=== PATIENT | female | born 1945 | race American Indian/Alaskan Native ===

== ENCOUNTER 2016-06-14 09:33 | Emergency (ER) | payer MEDICARE ==
[2016-06-14 10:57] VITALS: BP 138/77
--- NOTE | 2016-06-14 11:43 | Emergency Department Report ---
ED Extremity Problem HPI - General Chief complaint: Extremity Injury, Lower Stated complaint: PAIN IN LEGS Time Seen by Provider: 06/14/16 11:21 Source: patient Mode of arrival: Ambulatory Limitations: No Limitations - History of Present Illness Initial comments: PT reports valente leg pain since Feb. PT states she did trip and fall in Jan. PT states she was sore after fall but pain improved after apple cider soaks. PT states that she has tried a herbal joint supplement and a back pain reliever from the [employer] store but no improvement. PT states she has noticed swelling in the front of her legs. pt denies hx of dvt or CA, no recent surgery MD Complaint: extremity pain -: Gradual, month(s) Location: lower extremity, bilateral lower extremity History of Same: No -: No fever, No associated chest pain Severity scale (0 -10): 9 Quality: sharp, constant Consistency: constant Improves with: nothing Worsens with: weight bearing, walking, palpation Associated Symptoms: denies other symptoms - Related Data Allergies Allergy/AdvReac Type Severity Reaction Status Date / Time No Known Allergies Allergy Unverified 06/14/16 10:49 ED Review of Systems ROS: Stated complaint: PAIN IN LEGS Other details as noted in HPI Comment: All other systems reviewed and negative Constitutional: denies: fever Respiratory: denies: shortness of breath Cardiovascular: denies: chest pain Gastrointestinal: denies: abdominal pain Musculoskeletal: as per HPI, back pain. denies: joint swelling Skin: denies: rash, change in color Neurological: abnormal gait. denies: weakness, numbness, paresthesias ED Past Medical Hx - Past Medical History Hx Hypertension: Yes Hx Diabetes: No Hx Deep Vein Thrombosis: No - Surgical History Additional Surgical History: TUBAL LIGATION - Family History Family history: no significant (pt states both of her parents are alive and well ) - Social History Smoking Status: Never Smoker Substance Use Type: None ED Physical Exam - General Limitations: No Limitations General appearance: alert, in no apparent distress - Head Head exam: Present: atraumatic, normocephalic, normal inspection - Eye Eye exam: Present: normal appearance, EOMI. Absent: scleral icterus, conjunctival injection - ENT ENT exam: Present: normal exam - Neck Neck exam: Present: normal inspection, full ROM. Absent: tenderness - Respiratory Respiratory exam: Present: normal lung sounds bilaterally. Absent: respiratory distress, wheezes - Cardiovascular Cardiovascular Exam: Present: regular rate, normal rhythm, normal heart sounds - GI/Abdominal GI/Abdominal exam: Present: soft. Absent: tenderness - Extremities Exam Extremities exam: Present: full ROM, tenderness - Expanded Lower Extremity Exam Left Hip exam: Absent: tenderness, shortening Upper Leg exam: Present: normal inspection Knee exam: Present: full ROM, tenderness, swelling (to L ant knee ). Absent: normal inspection, deformity, crepidus Lower Leg exam: Present: tenderness (L post calf ), swelling (trace ). Absent: laceration, ecchymosis, deformity, erythema Ankle exam: Present: normal inspection. Absent: tenderness, swelling Foot/Toe exam: Present: normal inspection, full ROM. Absent: tenderness, ecchymosis, deformity Neuro vascular tendon exam: Absent: pulse deficit Gait: Positive: antalgic Right Hip exam: Absent: tenderness Upper Leg exam: Present: normal inspection Knee exam: Present: normal inspection, full ROM. Absent: tenderness, swelling, ecchymosis, deformity, crepidus Lower Leg exam: Present: normal inspection. Absent: tenderness, swelling, Josh 's sign Foot/Toe exam: Present: normal inspection, full ROM. Absent: tenderness Neuro vascular tendon exam: Present: no vascular compromise. Absent: pulse deficit Gait: Positive: antalgic - Back Exam Back exam: Present: normal inspection, full ROM, other (pt reports pain across l -spine ). Absent: tenderness, muscle spasm, paraspinal tenderness, vertebral tenderness - Neurological Exam Neurological exam: Present: alert, oriented X3, abnormal gait (due to leg pain ) - Expanded Neurological Exam Expanded Patient oriented to: Present: person, place, time Speech: Present: fluid speech Motor strength exam: RUE: 5, LUE: 5, RLE: 5, LLE: 5 Best Eye Response (Maria Luisa): (4) open spontaneously Best Motor Response (Maria Luisa): (6) obeys commands Best Verbal Response (Maria Luisa): (5) oriented Maria Luisa Total: 15 - Psychiatric Psychiatric exam: Present: normal affect, normal mood - Skin Skin exam: Present: warm, dry, intact, normal color ED Course Vital Signs 06/14/16 10:52 Temperature 98.2 F Pulse Rate 68 Respiratory 19 Rate Blood Pressure 138/77 O2 Sat by Pulse 100 Oximetry - Reevaluation(s) Reevaluation #1: 06/14/16 11:51 PT aware of plan of care. Reevaluation #2: 06/14/16 12:45 PT aware of lab work. PT aware of XR results and need for follow up. PT aware she may need further outpt imaging, such as an MRI. Reevaluation #3: 06/14/16 12:49 pt states her pcp is [facility] - Pulse Oximetry Interpretation Digit-Finger Initial Pulse Oximetry Readin Actions Taken: none ED Medical Decision Making - Lab Data Result diagrams: 06/14/16 11:47 06/14/16 11:47 - Radiology Data Radiology results: report reviewed, image reviewed VALENTE KNEE- severe degenerative changes XR L spine - Severe degenerative changes - Differential Diagnosis oa, sciatica, hypokalemia, cad, Critical Care Time: No Critical care attestation.: If time is entered above; I have spent that time in minutes in the direct care of this critically ill patient, excluding procedure time. ED Disposition Clinical Impression: Leg pain, bilateral Osteoarthritis of knee Qualifiers: Osteoarthritis type: primary Laterality: bilateral Qualified Code(s): M17.0 - Bilateral primary osteoarthritis of knee Low back pain Qualifiers: Chronicity: acute Back pain laterality: bilateral Sciatica presence: with sciatica Sciatica laterality: bilateral sciatica Qualified Code(s): M54.42 - Lumbago with sciatica, left side Disposition: DISCHARGED TO HOME OR SELFCARE Is pt being admited?: No Does the pt Need Aspirin: No Condition: Stable Instructions: Osteoarthritis (ED), Lumbar Radiculopathy (ED), Knee Pain (ED) Additional Instructions: Follow up with your PCP You may need to see an orthopedist (joint specialist) due to your significant arthritis You may need outpt MRI to further evaluate your back and knees No driving or ETOH after taking Tylenol #3 Referrals: PRIMARY CARE, [Primary Care Provider] - 3-5 Days Time of Disposition: 12:48
[2016-06-14 12:17] LABS: Basophils % (Auto) 0.7 % (0.0-1.8); Eosinophils % (Auto) 1.6 % (0.0-4.3); Hematocrit 42.9 % (30.3-42.9); Hemoglobin 14.2 gm/dl (10.1-14.3); Mean Corpuscular HGB Conc 33 % (30-34); Mean Corpuscular Hemoglobin 30 pg (28-32); Mean Corpuscular Volume 91 fl (79-97); Platelet Count 231 K/mm3 (140-440); Red Blood Count 4.72 M/mm3 (3.65-5.03); Red Cell Distribution Width 13.8 % (13.2-15.2); White Blood Count 5.7 K/mm3 (4.5-11.0)
[2016-06-14 12:22] LABS: Anion Gap 16 mmol/L; BUN/Creatinine Ratio 22.85; Blood Urea Nitrogen 16 mg/dL (7-17); Calcium 9.4 mg/dL (8.4-10.2); Carbon Dioxide 26 mmol/L (22-30); Chloride 101.2 mmol/L (98-107); Glucose 93 mg/dL (65-100); Sodium 139 mmol/L (137-145)
[2016-06-14] MEDS ORDERED: TORADOL IM ONE (12:28)
--- NOTE | 2016-06-14 12:36 | XRay Report ---
Bilateral knees: History: Knee pain and tenderness. Findings: There is marked narrowing noted of the medial and patellofemoral compartment right and left knee joint. Sclerotic adjacent articular surfaces with osteophyte suggestive of severe degenerative changes. [id number] degenerative changes at the lateral compartment. No soft tissue calcification. Impression: Severe bilateral degenerative changes medial and patellofemoral compartment knee joints.
--- NOTE | 2016-06-14 12:38 | XRay Report ---
Lumbar spine 3 views: History: Radiating lower back pain. Findings: Normal height of vertebral bodies. Marked decrease in height of the L2-L3 with normal L3-L4, L4-L5 and L5-S1. Sclerotic adjacent articular surfaces with peripheral osteophytes suggestive severe degenerative changes L2-L3. [id number] degenerative changes at lower lumbar spine with severe degenerative changes of the facet joints of the lower lumbar spine. Impression: Degenerative lumbar spine as detailed above. No evidence of acute fracture.
== END 2016-06-14 12:55 | disposition home or self-care (01) ==
LOC: ED 09:33
DX: M17.0 Bilateral primary osteoarthritis of knee (principal); M79.605 Pain in left leg; M79.604 Pain in right leg; M54.42 Lumbago with sciatica, left side; I10 Essential (primary) hypertension
CPT/HCPCS: 36415; 72100; 73560; 80048; 85025; 85379; 96372; 99283; J1885

== ENCOUNTER 2016-09-27 07:57 | Emergency (ER) | payer MEDICARE ==
[2016-09-27 08:06] VITALS: BP 149/80
--- NOTE | 2016-09-27 08:26 | Emergency Department Report ---
ED Lower Extremity HPI - General Chief Complaint: Fall Stated Complaint: PAIN IN LEGS Time Seen by Provider: 09/27/16 08:10 Source: patient Mode of arrival: Ambulatory Limitations: No Limitations - History of Present Illness MD Complaint: leg injury -: Gradual, Sudden Injury: Leg: Left Type of Injury: blunt Place: home Severity: mild Improves With: nothing Worsens With: movement Context: fall Associated Symptoms: other (swelling) - Related Data Previous Rx's Medication Instructions Recorded Last Taken Type Acetaminophen/Codeine [Tylenol #3] 1 tab PO Q6H PRN #12 tab 06/14/16 Unknown Rx Ibuprofen [Motrin] 600 mg PO Q8H PRN #15 tablet 06/14/16 Unknown Rx Naproxen Sodium [Aleve TAB] 220 mg PO Q8H PRN #12 tablet 09/27/16 Unknown Rx Allergies Allergy/AdvReac Type Severity Reaction Status Date / Time No Known Allergies Allergy Unverified 06/14/16 10:49 ED Review of Systems ROS: Stated complaint: PAIN IN LEGS Other details as noted in HPI Comment: Unobtainable due to pts medical conditions Constitutional: no symptoms reported, see HPI. denies: chills, diaphoresis, fever, malaise Eyes: as per HPI. denies: eye pain ENT: as per HPI. denies: ear pain, throat pain Respiratory: no symptoms reported, see HPI. denies: cough, orthopnea, shortness of breath, SOB with exertion, SOB at rest, stridor Cardiovascular: as per HPI, edema (ble mild swelling she states chronic. she thinks her bp meds is norvasc). denies: chest pain, palpitations, dyspnea on exertion, orthopnea, syncope, paroxysmal nocturnal dyspnea, other Endocrine: no symptoms reported, see HPI. denies: excessive sweating, flushing , intolerance to cold, intolerance to heat Gastrointestinal: as per HPI. denies: abdominal pain, nausea, vomiting Genitourinary: as per HPI. denies: urgency, dysuria Musculoskeletal: as per HPI. denies: back pain Skin: as per HPI. denies: rash, lesions Neurological: as per HPI. denies: headache, weakness Psychiatric: as per HPI. denies: anxiety, depression Hematological/Lymphatic: as per HPI. denies: easy bleeding ED Past Medical Hx - Past Medical History Previous Medical History?: Yes Hx Hypertension: Yes Hx Diabetes: No Hx Deep Vein Thrombosis: No Additional medical history: htn - Surgical History Past Surgical History?: Yes Additional Surgical History: TUBAL LIGATION - Family History Family history: no significant - Social History Smoking Status: Never Smoker Substance Use Type: Non Opiate Pain, Prescribed - Medications Home Medications: Home Medications Medication Instructions Recorded Confirmed Last Taken Type Acetaminophen/Codeine [Tylenol #3] 1 tab PO Q6H PRN #12 tab 06/14/16 Unknown Rx Ibuprofen [Motrin] 600 mg PO Q8H PRN #15 tablet 06/14/16 Unknown Rx Naproxen Sodium [Aleve TAB] 220 mg PO Q8H PRN #12 tablet 09/27/16 Unknown Rx ED Physical Exam - General Limitations: No Limitations General appearance: alert, in no apparent distress - Head Head exam: Present: atraumatic - Eye Eye exam: Present: normal appearance, PERRL - ENT ENT exam: Present: normal exam - Neck Neck exam: Present: normal inspection - Respiratory Respiratory exam: Present: normal lung sounds bilaterally. Absent: respiratory distress, wheezes - Cardiovascular Cardiovascular Exam: Present: regular rate (90 on exam) - GI/Abdominal GI/Abdominal exam: Present: soft - Rectal Rectal exam: Present: deferred, normal inspection - Extremities Exam Extremities exam: Present: full ROM, normal capillary refill, pedal edema, other (chronic issue). Absent: tenderness, joint swelling, calf tenderness - Back Exam Back exam: Present: normal inspection, full ROM. Absent: tenderness, CVA tenderness (R) - Neurological Exam Neurological exam: Present: alert, oriented X3, CN II-XII intact, normal gait, reflexes normal. Absent: abnormal gait, motor sensory deficit - Psychiatric Psychiatric exam: Present: normal affect, normal mood - Skin Skin exam: Present: warm, dry, intact, normal color. Absent: rash, cyanosis, diaphoretic, erythema, urticaria, vesicles ED Course Vital Signs 09/27/16 08:02 Temperature 98.5 F Pulse Rate 100 H Respiratory 20 Rate Blood Pressure 149/80 O2 Sat by Pulse 95 Oximetry - Reevaluation(s) Reevaluation #1: 09/27/16 09:48 to er sp fall up steps 6 days ago hitting lle ambulatory mild swelling b legs seen for this before can not tell me bp meds ambulatory non ill appearing sp glf 6 d ago w rle pain and mild swelling- but the swelling is b pt thinks her bp med is norvasc she fell while walking up the steps no cp no sob no loc at fall neg homans good cap refill and pulses seen for same before asking for pain shot- decadron given xray neg dc home w outpt fu ED Lower Extremity MDM - Radiology Data Radiology results: image reviewed interpreted by me: nap - Medical Decision Making ambulatory non ill appearing sp glf 6 d ago w rle pain and mild swelling- but the swelling is b pt thinks her bp med is norvasc she fell while walking up the steps no cp no sob no loc at fall neg homans good cap refill and pulses seen for same before asking for pain shot- decadron given xray neg dc home w outpt fu - Differential Diagnosis ro fx lle Critical care attestation.: If time is entered above; I have spent that time in minutes in the direct care of this critically ill patient, excluding procedure time. ED Disposition Clinical Impression: Contusion, Peripheral edema, Fall Disposition: DC-01 TO HOME OR SELFCARE Is pt being admited?: No Does the pt Need Aspirin: No Condition: Stable Instructions: Contusion in Adults (ED) Additional Instructions: rest warm compresses med for pain as given today address bp med- could be causing swelling drink plenty of water minimize salt in diet follow up pcp next week Referrals: PRIMARY CARE, [Primary Care Provider] - 3-5 Days Time of Disposition: 09:46
[2016-09-27] MEDS ORDERED: DECADRON IM ONE (09:42)
--- NOTE | 2016-09-27 10:02 | XRay Report ---
X-RAY LEFT TIBIA AND FIBULA TWO VIEWS: 09/27/16 07:57:00 CLINICAL: Fall and pain. FINDINGS: No fracture or dislocation. Medial joint space narrowing with a large medial osteophyte. Patellofemoral joint arthritis with narrowing of the joint space and osteophytes. No joint effusion. Moderate soft tissue swelling at the ankle.No soft tissue air or foreign body. IMPRESSION: Nonspecific soft tissue edema and moderate osteoarthritis of the medial joint space and patellofemoral joint.
== END 2016-09-27 10:05 | disposition home or self-care (01) ==
LOC: ED 07:57
DX: S80.12XA Contusion of left lower leg, initial encounter (principal); I10 Essential (primary) hypertension; R60.0 Localized edema; X58.XXXA Exposure to other specified factors, initial encounter; Y99.8 Other external cause status; Y93.89 Activity, other specified; Y92.89 Other specified places as the place of occurrence of the external cause
CPT/HCPCS: 73590; 96372; 99283; J1100